=== PATIENT | male | born 1980 | race Caucasian/White ===

== ENCOUNTER → 2016-09-19 | Outpatient (CLI) | payer OTHER ==
[2016-09-19 10:26] LABS: ALBUMIN 3.7 g/dL (3.4-5.0); ALBUMIN/GLOBULIN RATIO 0.7 (1.0-1.7); CALCIUM 9.5 mg/dL (8.5-10.1); CREATININE 2.1 mg/dL (0.7-1.3); GFR 36.3; POTASSIUM 4.5 mmol/L (3.5-5.1); TOTAL BILIRUBIN 0.3 mg/dL (0.2-1.0); TOTAL PROTEIN 8.9 g/dL (6.4-8.2)
== END | disposition home or self-care (01) ==
LOC: LAB 09:41
PROVIDERS: ATTEND Neuromusculoskeletal Medicine, Sports Medicine
DX: Z94.0 Kidney transplant status (principal)
CPT/HCPCS: 36415; 80053